=== PATIENT | male | born 1980 | race African-American/Black ===

== ENCOUNTER 2016-10-31 07:14 | Emergency (ER) | payer OTHER ==
[~2016-10-31] VITALS: Ht 167.6 cm; Wt 63.3 kg
[~2016-10-31 07:14] MED LIST: AMOXICILLIN500 MG PO; MOTRIN600 MG PO; PEPCID20 MG PO; PREDNISONE50 MG PO
[2016-10-31 07:46] VITALS: BP 129/78
[2016-11-01] MEDS ORDERED: ZOFRAN ODT4 MG PO (15:28)
== END 2016-10-31 07:47 | disposition home or self-care (01) ==
LOC: EME 07:14
DX: M54.81 Occipital neuralgia (principal); F17.200 Nicotine dependence, unspecified, uncomplicated
CPT/HCPCS: 99281; 99283; S0020

== ENCOUNTER 2016-11-01 13:18 | Emergency (ER) | payer OTHER ==
[~2016-11-01] VITALS: Ht 167.6 cm; Wt 62.1 kg
[2016-11-01 14:14] LABS: HEMATOCRIT 39.8 % (38.0-50.0); MCH 24.1 PG (29.0-34.0); MCHC 32.7 G/DL (30.0-36.0); MCV 73.8 FL (86-99); MEAN PLAT.VOLUME 9.9 uM^3 (9.0-12.4); PLATELET COUNT 206 K/uL (156-360); RBC DIS.WIDTH-CV 14.9 % (11.8-14.6); RBC DIS.WIDTH-SD 39.2 % (39-53); RED BLOOD COUNT 5.39 M/uL (4.00-5.50); WHITE BLOOD COUNT 13.4 K/uL (4.1-10.2)
[2016-11-01 14:20] LABS: EOSINOPHIL (%) 0.4 % (0-5); EOSINOPHIL COUNT 0.1 K/uL (0-0.3); IMMATURE GRANULOCYTE (%) 0.4 % (0.0-0.7); IMMATURE GRANULOCYTE COUNT 0.5 K/uL; LYMPHOCYTE COUNT 1.8 K/uL (1.0-2.8); MONOCYTE COUNT 0.8 K/uL (0-0.8); NEUTROPHIL (%) 79.9 % (45-76); NEUTROPHIL COUNT 10.7 K/uL (1.8-6.4)
[2016-11-01 14:23] LABS: CHLORIDE 108 mEq/L (99-109); POTASSIUM 4.3 mEq/L (3.7-5.4); SODIUM 143 mEq/L (136-147)
[2016-11-01 14:25] LABS: GLUCOSE 85 mg/dL (70-99)
[2016-11-01 14:27] LABS: ANION GAP 9 MEQ/L (2-14)
[2016-11-01 14:29] LABS: GFR ESTIMATE (CALCULATED) > 59 mL/min/
[2016-11-01 14:30] LABS: UREA NITROGEN (BUN) 16 mg/dL (9-23)
[2016-11-01] MEDS ORDERED: ZOFRAN ODT4 MG PO (15:28)
[2016-11-01 15:45] VITALS: BP 121/64
== END 2016-11-01 15:45 | disposition home or self-care (01) ==
LOC: EME 13:18
PROVIDERS: Emergency Medicine
DX: B34.9 Viral infection, unspecified (principal); F17.200 Nicotine dependence, unspecified, uncomplicated
CPT/HCPCS: 80048; 85025; 99281; 99284